=== PATIENT | female | born 1955 | race Caucasian/White ===

== ENCOUNTER 2018-09-03 14:03 | Outpatient (CLI) | payer BC, SELFPAY ==
[2018-09-03 14:25] LABS: Abs Immature Grans 0.01 k/cumm (0.0-0.09); Absolute Basophil Count 0.01 k/cumm (0.0-0.2); Absolute Eosinophil Count 0.12 k/cumm (0.0-0.7); Absolute Lymphocyte Count 2.15 k/cumm (1.2-3.4); Absolute Monocyte Count 0.33 k/cumm (0.11-0.7); Absolute Neutrophil Count 4.17 k/cumm (1.2-6.7); Basophils % 0.1; Eosinophils % 1.8; HCT 38.5 % (36.0-46.0); HGB 12.6 g/dL (12.0-15.5); Immature Grans % 0.1; Lymphocytes % 31.7; Mean Corp. HGB Concentration 32.7 g/dL (32.0-36.0); Mean Corpuscular Hemoglobin 30.4 pg (27.0-33.0); Mean Platelet Volume 10.5 fL (8.0-11.0); Monocytes % 4.9; Neutrophils % 61.4; Platelet Count 227 x1000/uL (130-400); RBC 4.14 m/cumm (4.00-5.20); RBC Distribution Width 13.3 % (11.7-14.6); White Blood Cell Count 6.79 k/cumm (4.4-10.8)
[2018-09-03 15:18] LABS: ALT 21 U/L (12-78); AST 14 U/L (15-37); Albumin 3.8 g/dL (3.4-5.0); Alkaline Phosphatase 73 U/L (46-116); Anion Gap 9.6 mmol/L (3-11); BUN 17 mg/dL (7-18); Bilirubin, Total 0.3 mg/dL (0.2-1.0); CO2 28.4 mmol/L (21.0-32.0); CREATININE 0.73 mg/dL (0.55-1.02); Calcium 9.1 mg/dL (8.5-10.1); Chloride 104 mmol/L (98-107); Glucose 93 mg/dL (70-100); Potassium 3.7 mmol/L (3.5-5.1); Sodium 142 mmol/L (136-145); Total Protein 6.8 g/dL (6.4-8.2)
== END 2018-09-03 14:23 ==
PROVIDERS: PCP Emergency Medicine; Visit Provider Nurse Practitioner Family
DX: R94.4 Abnormal results of kidney function studies (principal); D72.829 Elevated white blood cell count, unspecified
CPT/HCPCS: 36415; 80053; 85025

== ENCOUNTER 2019-06-21 13:06 | Emergency (ER) | payer BC, SELFPAY ==
[2019-06-21] VITALS (44 sets, daily range): BP systolic 109–154; BP diastolic 48–75; PULSE 64–95; RESP 9–26; TEMP 36.7; O2SAT 96–100
--- NOTE | 2019-06-21 13:11 | ED.GENADUL_ITS ---
Discharge Plan Disposition Patient Disposition: HOME Condition: Improving Discharge Details Chief Complaint: Chest Pain Clinical Impression: Palpitations, Chronic chest pain Primary Care Provider: Evaristo Russell ED Provider: Sarah Aguilar Home Meds and New Rx's Prescriptions: Continued acetaminophen [Acetaminophen Extra Strength] 500 MG tablet 1.5 tab PO bid prn RF: 0 Slow-Mag 71.5 MG tablet,delayed release (DR/EC) 71.5 mg PO DAILY PRNRF: 0 multivitamin 1 EACH tablet 1 tab PO DAILY RF: 0 estradiol [Vagifem] 10 MCG tablet 2 tab VG TWICE A WEEK Qty: 8 RF: 0 propranolol 10 MG tablet 10 mg PO PRN PRNRF: 0 oxycodone-acetaminophen [Percocet] 1 EACH tablet 1 tab-cap PO Q4H PRN Qty: 30 RF: 0 ursodiol 250 MG tablet 250 mg PO DAILY Qty: 90 RF: 1 naproxen sodium 550 mg tablet 550 mg PO bid prn Qty: 60 RF: 6 Discharge Instructions Instructions: Palpitations (ED), Chronic Pain (ED) Additional Instructions: Take your regular medications as directed including your metoprolol daily and your propranolol as needed. Go to [facility] tomorrow to have your ZIO Patch monitor placed in the cardiology clinic. Return immediately to the emergency department anytime if you have any worsening or new concerning symptoms of fast heart rate, worsening lightheadedness, chest pain or shortness of breath. Discharge Data Discharge Physician: Sarah Aguilar Medical Decision Making 1320 -- 63-year-old female with a history of WPW with ablation in 2011, migraine, who presents with increasing palpitations, dizziness, fatigue, shortness of breath and chest pain over the past year, worse over the past 5 days. 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 She started metoprolol under the direction of the ER physician in [place] after a visit 1 month ago for the symptoms. She has a touch desk monitor through her fingers which noted what she thought looked like ventricular tachycardia today. She states she has had recent multiple cardiac monitors including Zio patch which were normal. Review of patient's phone with this rhythm appeared to have a wide QRS irregular rhythm, tachycardia, almost appeared consistent with a rhythm that looked like torsades or V. tach. EKG noted a rate of 76, sinus with no acute ST-T wave ischemic changes. With patient's recent travel, differential diagnosis can include PE. She does admit to intermittent radiation to her back but denies tearing sensation so doubt dissection, but will obtain CT chest to rule out PE, dissection. Considering her history, will check screening labs to rule out electrolyte abnormality. Pending work-up, will call [facility] cardiology for further recommendations. 1530 -- Labs and imaging reviewed and unremarkable. Troponin negative. CT chest negative for PE. Patient had a few more episodes while discussing results in the room. Her rate and rhythm appeared normal on the monitor. A repeat EKG was done which noted a rate of 95, sinus with no acute ischemic changes. She states she has taken diazepam and lorazepam in the past for anxiety. We will give a dose of Ativan. 1615 --discussed with [facility] cardiology -who reviewed with electrophysiology -feel that this is more consistent with noise on top of sinus rhythm and do not see any evidence of ventricular tachycardia or ventricular fibrillation. Recommend patient continue her regular medications as directed including her metoprolol and propranolol as needed. A zio patch order was placed at the cardiology clinic for patient to have placed tomorrow. She can also see her primary care doctor for this zio patch. Patient feels much better. She is advised to return here with any worsening or concerning symptoms. Medical Records Medical records reviewed: Yes I reviewed the patient's medical records. Imaging Data Radiologic Study: Radiologist's impression: CT ANGIOGRAPHY, CHEST: CT angiography was performed with multi slice acquisition and multi planar and 3D reconstruction. CT angiography of the chest was performed with a bolus infusion of 100 cc of Omnipaque 350. Images obtained through the upper abdomen show incidental hepatic cysts as noted on previous ultrasound and otherwise unremarkable appearance of visualized portions of liver, spleen and pancreas. Thoracic aorta is unremarkable in appearance with no aneurysm or dissection. No evidence of pulmonary embolic disease. The lungs are clear. No pleural effusion. No me diastinal or hilar adenopathy. CONCLUSION: No evidence of acute pulmonary embolus. Lab Data Lab results reviewed: Yes I reviewed the patient's lab results. Laboratory Tests Range/Units 06/21/19 06/21/19 06/21/19 13:25 13:25 13:25 WBC (4.4-10.8) k/cumm 10.81 H RBC (4.00-5.20) m/cumm 4.67 Hgb (12.0-15.5) g/dL 14.3 Hct (36.0-46.0) % 42.9 MCV (80-95) fL 91.9 MCH (27.0-33.0) pg 30.6 MCHC (32.0-36.0) g/dL 33.3 RDW (11.7-14.6) % 13.1 Plt Count (130-400) x1000/uL 316 MPV (8.0-11.0) fL 11.4 H Immature Gran % 0.2 Neutrophils % 63.8 Lymphocytes % 28.8 Monocytes % 5.4 Eosinophils % 1.7 Basophils % 0.1 Absolute Neutrophils (1.2-6.7) k/cumm 6.90 H Absolute Lymphocytes (1.2-3.4) k/cumm 3.11 Absolute Monocytes (0.11-0.7) k/cumm 0.58 Absolute Eosinophils (0.0-0.7) k/cumm 0.18 Absolute Basophils (0.0-0.2) k/cumm 0.01 Sodium (136-145) mmol/L 141 Potassium (3.5-5.1) mmol/L 3.5 Chloride (98-107) mmol/L 103 Carbon Dioxide (21.0-32.0) mmol/L 24.8 Anion Gap (3-11) mmol/L 13.2 H BUN (7-18) mg/dL 16 Creatinine (0.55-1.02) mg/dL 0.95 Estimated GFR/1.73 m2 (mL/min/1.73m2) 59.80 Glucose (70-100) mg/dL 101 H Calcium (8.5-10.1) mg/dL 9.4 Magnesium (1.8-2.4) mg/dL 2.3 Total Bilirubin (0.2-1.0) mg/dL 0.6 AST (15-37) U/L 17 ALT (14-59) U/L 22 Alkaline Phosphatase (46-116) U/L 85 Troponin I (0.00-0.06) ng/mL < 0.05 NT-Pro-B Natriuret Pep ( - 299) pg/mL 96 Total Protein (6.4-8.2) g/dL 8.3 H Albumin (3.4-5.0) g/dL 4.4 ECG Data Attestation: I personally reviewed and interpreted this ECG (s) as follows: Interpretation: #1 -- Rate of 76, sinus, no acute ST elevation or depression. T wave inversion in V2. CA 150. QTc 443. QRS 82. #2 -- Rate of 95, sinus, no acute ST elevation or depression. T wave inversion in V2. CA 168. QTc 470. QRS 82. HPI General Mode of arrival: ambulatory . Date/Time Provider Initiated Documentation: 06/21/19 13:09 . Limitations to Documentation: no limitations . Information obtained by: patient . HPI Narrative: Patient is a 63-year-old female with a history of WPW with ablation in 2011 who presents with sensation of palpitations occurring every few months for the past year, getting progressively worse for the past months and especially over the past 5 days. She states the episodes are occurring more frequently and almost daily she feels shaky, tired, short of breath, lightheaded. She does admit to increased stress recently due to her mother recently being sick with a brain hemorrhage. She states she traveled to [facility] to see her 1 week ago in which she was in the car for 12 hours. She denies any leg pain or swelling. She states she was seen in the ER in [place] 1 month ago for the symptoms and was started on meto prolol 12.5 mg daily by the ER physician. She states she regularly sees her combination welder apprentice at [facility] Dr. Robert Osei and Dr. Adal Musa for her WPW and states she last saw them 1 month ago. She states she did not tell them about her recent ED visit and medication change. She states she also takes propranolol as needed for tachycardia not relieved with other measures. She states she has spoke to her combination welder apprentice at [facility] about the symptoms over the past year and they have placed several cardiac monitors including a ZIO Patch all of which have been negative. She states the most recently gave her a phone attachment which can take a 2-lead EKG through her fingers which she states that they appeared to show that she had a few episodes of ventricular tachycardia. Patient also admits to chronic chest pain since her ablation in 2011 and states that this is been occurring more frequently lately. She states it is substernal with radiation to her back. She denies any fever or cough, nausea or vomiting. Related Data Home Medications Medication Instructions Recorded Confirmed Slow-Mag 71.5 mg PO DAILY PRN 12/15/12 06/21/19 acetaminophen [Acetaminophen Extra 1.5 tab PO bid prn 12/15/12 06/21/19 Strength] multivitamin 1 tab PO DAILY 01/20/13 06/21/19 estradiol [Vagifem] 2 tab VG TWICE A WEEK #8 tab-cap 01/19/14 06/21/19 propranolol 10 mg PO PRN PRN tab-cap 04/05/14 06/21/19 oxycodone-acetaminophen [Percocet] 1 tab-cap PO Q4H PRN #30 tab-cap 03/06/17 06/21/19 ursodiol 250 mg PO DAILY #90 tab-cap 04/06/18 06/21/19 naproxen sodium 550 mg tablet 550 mg PO bid prn #60 tab 07/14/18 06/21/19 Previous Rx's Medication Instructions Recorded ursodiol 250 mg PO DAILY #90 tab-cap 04/06/18 naproxen sodium 550 mg tablet 550 mg PO bid prn #60 tab 07/14/18 Allergies Allergy/AdvReac Type Severity Reaction Status Date / Time fentanyl Allergy Severe SEVERE Unverified 02/10/18 15:52 DROP IN BLOOD PRESSURE. ciprofloxacin [From Cipro] Allergy Intermediate neurotoxic Verified 06/25/18 14:12 S/S erythromycin base Allergy Unknown Unverified 02/10/18 15:52 midazolam Allergy Unknown Unverified 02/10/18 15:52 Phenothiazines Allergy Unknown SKIN RASH Unverified 02/10/18 15:52 sumatriptan Allergy Unknown Unverified 02/10/18 15:52 prochlorperazine Allergy Unverified 02/10/18 15:52 [From Compazine] Review of Systems Review of Systems All systems reviewed & are unremarkable except as noted in HPI and below Constitutional Reports as per HPI, Denies chills, Reports fatigue and Denies fever(s) Eyes Denies blurry vision ENT Denies dizziness, Denies sore throat and Denies throat swelling Cardiovascular Reports chest pain, Reports rapid heart rate, Reports palpitations and Reports dyspnea Respiratory Denies cough and Reports dyspnea Gastrointestinal Denies abdominal pain, Denies diarrhea and Denies vomiting Genitourinary Denies hematuria and Denies dysuria Musculoskeletal Denies back pain and Denies numbness Integumentary/Breasts Denies lesions and Denies rash Neurologic Denies dizziness, Denies focal weakness and Denies numbness Endocrine Reports fatigue and Reports palpitations Allergic/Immunologic Denies throat swelling [facility] Medical History Migraine with aura (Inactive) complex migraine Uterine leiomyoma (Inactive) Wkplt-Ayoxhyhqs-Yifka syndrome (Acute) Surgical History Cholecystectomy (~2011) with secondary peritonitis History of cardiac radiofrequency ablation (Acute) 2011 Social History (Updated 06/21/19 @ 14:06 by Sarah Aguilar DO) Smoking/Tobacco Use Status: Never Alcohol Intake: never Drug use: Never Substance use type: does not use Do you feel safe at home: Yes Do you feel safe in your relationship?: Yes Exam Const General: cooperative, healthy appearing and no acute distress HENMT Head: normal to inspection Ears: hearing grossly normal bilaterally General nose exam: external nose normal Face and sinus: normal facial exam Mouth: oral mucosae normal Eyes General: appearance normal, both eyes and all related structures EOM: EOM intact bilaterally Neck Neck: normal visual inspection and No submandibular swelling Lymphatic: no lymphadenopathy noted Chest Chest: normal inspection of the chest and no tenderness Resp Effort & Inspection: normal respiratory effort and able to speak in complete sentences Auscultation: clear to auscultation bilaterally Cardio Rate: regular rate Rhythm: regular rhythm GI Inspection: normal to inspection Palpation: soft, not firm, not rigid and nontender Auscultation: normal bowel sounds Skin General skin exam: no rashes or lesions noted Neuro General: alert, awake and oriented x3 Cognition: normal cognition Speech: speech normal Motor: muscle tone normal throughout Sensory Exam: no sensory deficits noted Extrem General: normal to inspection, full ROM, normal capillary refill, no calf tenderness bilaterally and no edema Psych Appearance: grossly normal Mental Status: mental status grossly normal Speech and Movement: speech and movement normal Affect: normal affect
--- NOTE | 2019-06-21 13:36 | NUR.NOTE ---
Nursing Note: obtain VS for RN PS see triage
[2019-06-21 13:57] LABS: Abs Immature Grans 0.02 k/cumm (0.0-0.09); Absolute Basophil Count 0.01 k/cumm (0.0-0.2); Absolute Eosinophil Count 0.18 k/cumm (0.0-0.7); Absolute Lymphocyte Count 3.11 k/cumm (1.2-3.4); Absolute Monocyte Count 0.58 k/cumm (0.11-0.7); Basophils % 0.1; Eosinophils % 1.7; HCT 42.9 % (36.0-46.0); HGB 14.3 g/dL (12.0-15.5); Immature Grans % 0.2; Lymphocytes % 28.8; Mean Corp. HGB Concentration 33.3 g/dL (32.0-36.0); Mean Corpuscular Hemoglobin 30.6 pg (27.0-33.0); Mean Corpuscular Volume 91.9 fL (80-95); Mean Platelet Volume 11.4 fL (8.0-11.0); Monocytes % 5.4; Neutrophils % 63.8; Platelet Count 316 x1000/uL (130-400); RBC 4.67 m/cumm (4.00-5.20); RBC Distribution Width 13.1 % (11.7-14.6); White Blood Cell Count 10.81 k/cumm (4.4-10.8)
--- NOTE | 2019-06-21 13:57 | DI.CT_ITS ---
SYMPTOMS/DIAGNOSIS: SUBSTERNAL CHEST PAIN, ? PULMONARY EMBOLISM CT ANGIOGRAPHY, CHEST: CT angiography was performed with multi slice acquisition and multi planar and 3D reconstruction. CT angiography of the chest was performed with a bolus infusion of 100 cc of Omnipaque 350. Images obtained through the upper abdomen show incidental hepatic cysts as noted on previous ultrasound and otherwise unremarkable appearance of visualized portions of liver, spleen and pancreas. Thoracic aorta is unremarkable in appearance with no aneurysm or dissection. No evidence of pulmonary embolic disease. The lungs are clear. No pleural effusion. No mediastinal or hilar adenopathy. CONCLUSION: No evidence of acute pulmonary embolus.
[2019-06-21 14:11] LABS: Magnesium 2.3 mg/dL (1.8-2.4); NT-proBNP 96 pg/mL
[2019-06-21 14:12] LABS: ALT 22 U/L (14-59); AST 17 U/L (15-37); Albumin 4.4 g/dL (3.4-5.0); Alkaline Phosphatase 85 U/L (46-116); Anion Gap 13.2 mmol/L (3-11); BUN 16 mg/dL (7-18); Bilirubin, Total 0.6 mg/dL (0.2-1.0); CO2 24.8 mmol/L (21.0-32.0); CREATININE 0.95 mg/dL (0.55-1.02); Calcium 9.4 mg/dL (8.5-10.1); Chloride 103 mmol/L (98-107); Glucose 101 mg/dL (70-100); Potassium 3.5 mmol/L (3.5-5.1); Sodium 141 mmol/L (136-145); Total Protein 8.3 g/dL (6.4-8.2); Troponin I < 0.05 ng/mL (0.00-0.06)
--- NOTE | 2019-06-21 14:24 | NUR.NOTE ---
Nursing Note: pt ambulated to and from bathroom without difficulty. steady gait noted.
--- NOTE | 2019-06-21 14:32 | NUR.NOTE ---
Nursing Note: pt to CT with RN on air sampling and monitoring
[2019-06-21] MEDS: Normal Saline 1,000 ML 1000 ML IV (14:48)
[2019-06-21] MEDS: Omnipaque 350 MG/ML 100 ML BTL IJ (14:51)
[2019-06-21] MEDS: LORazepam 1 MG TAB PO (15:35)
== END 2019-06-21 17:20 | disposition home or self-care (01) ==
PROVIDERS: Emergency Provider Physician Assistant; PCP Emergency Medicine
DX: R07.9 Chest pain, unspecified (principal); G89.29 Other chronic pain; R00.2 Palpitations; I45.6 Pre-excitation syndrome
CPT/HCPCS: 71275; 80053; 93005; 96360; 99285; 83735; 83880; 84484; 85025; 93010; J3490

== ENCOUNTER 2019-06-28 15:17 | Outpatient (CLI) | payer BC, SELFPAY ==
[2019-06-28 16:45] LABS: ESR 12 mm/hr (0-30)
[2019-06-28 16:47] LABS: D-Dimer 251 ng/mlFEU (<500)
[2019-06-28 18:39] LABS: C-Reactive Protein 0.23 mg/dL (0.0-0.3); TSH 1.48 uIU/mL (0.36-3.74)
== END 2019-06-28 15:37 ==
PROVIDERS: PCP Emergency Medicine; Visit Provider Emergency Medicine
DX: E03.9 Hypothyroidism, unspecified (principal); R00.0 Tachycardia, unspecified
CPT/HCPCS: 36415; 85652; 84443; 85379; 86140

== ENCOUNTER 2019-07-04 11:34 | Outpatient (CLI) | payer BC, SELFPAY ==
[2019-07-06 19:15] LABS: Metanephrines, U 109 mcg/24 h; Normetanephrine, U 180 mcg/24 h; Total Metanephrines, U 289 mcg/24 h; Urine Volume 2025 mL
[2019-07-08 11:40] LABS: Metanephrine, Free 0.26 nmol/L (<0.50); Normetanephrine, Free 0.51 nmol/L (<0.90)
== END 2019-07-04 11:54 ==
PROVIDERS: PCP Emergency Medicine; Visit Provider Emergency Medicine
DX: R00.0 Tachycardia, unspecified (principal)
CPT/HCPCS: 36415; 81050; 83835

== ENCOUNTER 2019-07-19 02:14 | Outpatient (CLI) | payer BC, SELFPAY ==
[2019-07-19 11:51] LABS: Calculated LDL 130 mg/dL; Cholesterol 212 mg/dL (50-200); HDL Cholesterol 42 mg/dL (40-60); Triglyceride 202 mg/dL (30-150)
== END 2019-07-19 02:34 ==
PROVIDERS: PCP Emergency Medicine; Visit Provider Emergency Medicine
DX: E78.5 Hyperlipidemia, unspecified (principal)
CPT/HCPCS: 36415; 80061

== ENCOUNTER 2019-07-22 13:58 | Outpatient (CLI) | payer BC, SELFPAY ==
[2019-07-22 16:00] LABS: Abs Immature Grans 0.02 k/cumm (0.0-0.09); Absolute Basophil Count 0.01 k/cumm (0.0-0.2); Absolute Lymphocyte Count 0.75 k/cumm (1.2-3.4); Absolute Neutrophil Count 10.16 k/cumm (1.2-6.7); Basophils % 0.1; HCT 39.6 % (36.0-46.0); HGB 13.2 g/dL (12.0-15.5); Immature Grans % 0.2; Lymphocytes % 6.8; Mean Corp. HGB Concentration 33.3 g/dL (32.0-36.0); Mean Corpuscular Hemoglobin 31.3 pg (27.0-33.0); Mean Corpuscular Volume 93.8 fL (80-95); Mean Platelet Volume 10.8 fL (8.0-11.0); Monocytes % 0.9; Platelet Count 259 x1000/uL (130-400); RBC 4.22 m/cumm (4.00-5.20); RBC Distribution Width 13.1 % (11.7-14.6); White Blood Cell Count 11.04 k/cumm (4.4-10.8)
[2019-07-22 16:55] LABS: ESR 15 mm/hr (0-30)
[2019-07-22 17:55] LABS: ALT 14 U/L (14-59); AST 12 U/L (15-37); Albumin 3.9 g/dL (3.4-5.0); Alkaline Phosphatase 82 U/L (46-116); Amylase 76 U/L (25-115); Anion Gap 11.6 mmol/L (3-11); BUN 22 mg/dL (7-18); Bilirubin, Total 0.3 mg/dL (0.2-1.0); C-Reactive Protein 0.19 mg/dL (0.0-0.3); CO2 26.4 mmol/L (21.0-32.0); CREATININE 1.01 mg/dL (0.55-1.02); Chloride 105 mmol/L (98-107); Estimated GFR 55.54 (mL/min/1.73m2); Glucose 156 mg/dL (70-100); Lipase 629 U/L (73-393); Potassium 4.3 mmol/L (3.5-5.1); Sodium 143 mmol/L (136-145); TSH 0.35 uIU/mL (0.36-3.74); Total Protein 7.1 g/dL (6.4-8.2)
== END 2019-07-22 14:18 ==
PROVIDERS: PCP Emergency Medicine; Visit Provider Emergency Medicine
DX: E03.9 Hypothyroidism, unspecified (principal); R10.9 Unspecified abdominal pain
CPT/HCPCS: 36415; 80053; 83690; 85652; 82150; 84443; 85025; 86140

== ENCOUNTER 2019-08-01 00:46 | Outpatient (CLI) | payer BC, SELFPAY ==
--- NOTE | 2019-08-01 14:50 | DI.MRI_ITS ---
EXAM: MR ANGIO BRAIN WO CLINICAL HISTORY: right visual facial symptoms H54.61 VISUAL LOSS RT EYE. TECHNIQUE: Multiplanar multisequence MRI was performed. COMPARISON: No exams were available for comparison FINDINGS: There is no evidence of aneurysm, occlusion or significant stenosis. No vessel irregularity is see n. IMPRESSION: Negative MRA of the brain.
--- NOTE | 2019-08-01 14:50 | DI.MRI_ITS ---
EXAM: MR BRAIN WO CLINICAL HISTORY: right visual facial symptoms H54.61 VISUAL LOSS RT EYE. TECHNIQUE: Multiplanar multisequence MRI was performed. COMPARISON: MRI - BRAIN WO CONTRAST from 08/06/2016 MR ANGIO BRAIN WO from 08/01/2019 FINDINGS: No intracranial hemorrhage, mass or infarct is seen. There are a few tiny high signal lesions in th e white matter which are nonspecific and may reflect sequela of microvascular disease. No significan t atrophy or ventricular dilatation is seen. The vascular flow voids appear intact. The orbits, sin uses and mastoid air cells appear unremarkable. IMPRESSION: No acute abnormality.
--- NOTE | 2019-08-01 16:17 | DI.VRAD_ITS ---
PROCEDURE INFORMATION: Exam: MR Head Without Contrast Exam date and time: 08/01/2019 3:41 PM Clinical history: 64 years old, female; Visual disturbance; Patient HX: Visual loss RT eye TECHNIQUE: Imaging protocol: MR of the head without contrast. COMPARISON: MR ANGIO BRAIN WO 08/01/2019 3:06 PM FINDINGS: Brain: Normal. No acute infarct. No hemorrhage. No significant white matter disease. No edema. Ventricles: Normal. No ventriculomegaly. Bones/joints: Unremarkable. Soft tissues: Unremarkable. Sinuses: Normal as visualized. No acute sinusitis. Mastoid air cells: Normal as visualized. No mastoid effusion. Orbits: Unremarkable. IMPRESSION: No acute findings. Dictated and Authenticated by: Rohan Guan MD. Ordering:ISABEL Loera MD
--- NOTE | 2019-08-01 16:22 | DI.VRAD_ITS ---
PROCEDURE INFORMATION: Exam: MR Angiogram Head Without and With Contrast, Arteries Exam date and time: 08/01/2019 3:34 PM Clinical history: 64 years old, female; Visual disturbance; Transient visual loss; Patient HX: Visual loss right eye TECHNIQUE: Imaging protocol: MR angiogram head without and with intravenous contrast. Exam focused on the arteries. 3D rendering: MIP reconstructed images were created and reviewed. COMPARISON: MRI - BRAIN WO CONTRAST 08/06/2016 3:47 PM FINDINGS: Right internal carotid artery: Unremarkable. Intracranial segment is patent with no significant stenosis. No aneurysm. Right anterior cerebral artery: Unremarkable. No occlusion or significant stenosis. No aneurysm. Right middle cerebral artery: Unremarkable. No occlusion or significant stenosis. No aneurysm. Right posterior cerebral artery: Unremarkable. No occlusion or significant stenosis. No aneurysm. Right vertebral artery: Unremarkable. No occlusion or significant stenosis. No aneurysm. Left internal carotid artery: Unremarkable. Intracranial segment is patent with no significant stenosis. No aneurysm. Left anterior cerebral artery: Unremarkable. No occlusion or significant stenosis. No aneurysm. Left middle cerebral artery: Unremarkable. No occlusion or significant stenosis. No aneurysm. Left posterior cerebral artery: Unremarkable. No occlusion or significant stenosis. No aneurysm. Left vertebral artery: Unremarkable. No occlusion or significant stenosis. No aneurysm. Basilar artery: Unremarkable. No occlusion or significant stenosis. No aneurysm. IMPRESSION: No acute findings. Dictated and Authenticated by: Rohan Guan MD. Ordering:ISABEL Loera MD
== END 2019-08-01 01:06 ==
PROVIDERS: PCP Emergency Medicine; Visit Provider Emergency Medicine
DX: H54.61 Unqualified visual loss, right eye, normal vision left eye (principal)
CPT/HCPCS: 70544; 70551

== ENCOUNTER 2019-08-07 11:15 | Outpatient (REF) | payer BC, SELFPAY ==
[2019-08-08 15:28] LABS: Creatinine,Urine 65.32 mg/dL
[2019-08-08 15:36] LABS: Creatinine,24hr Ur 0.98 g/24hr (0.60-1.80); Total Volume 1500 ml
[2019-08-11 12:43] LABS: 5-Hydroxyindoleacetic Acid, U 2.3 mg/24 h (<=8.4); Urine Volume 1500 mL
== END 2019-08-07 11:35 ==
LOC: LBN 11:15
PROVIDERS: PCP Emergency Medicine; Visit Provider Internal Medicine Endocrinology, Diabetes & Metabolism
DX: E04.1 Nontoxic single thyroid nodule (principal)
CPT/HCPCS: 81050; 82570; 83497

== ENCOUNTER 2019-09-06 07:00 | Outpatient (CLI) | payer BC, SELFPAY ==
[2019-09-06 12:45] LABS: Abs Immature Grans 0.01 k/cumm (0.0-0.09); Absolute Basophil Count 0.01 k/cumm (0.0-0.2); Absolute Lymphocyte Count 1.63 k/cumm (1.2-3.4); Absolute Neutrophil Count 4.16 k/cumm (1.2-6.7); Basophils % 0.2; Eosinophils % 1.6; HCT 41.2 % (36.0-46.0); HGB 13.4 g/dL (12.0-15.5); Immature Grans % 0.2; Lymphocytes % 25.8; Mean Corp. HGB Concentration 32.5 g/dL (32.0-36.0); Mean Corpuscular Hemoglobin 30.5 pg (27.0-33.0); Mean Corpuscular Volume 93.8 fL (80-95); Mean Platelet Volume 11.5 fL (8.0-11.0); Monocytes % 6.3; Neutrophils % 65.9; Platelet Count 258 x1000/uL (130-400); RBC 4.39 m/cumm (4.00-5.20); RBC Distribution Width 13.1 % (11.7-14.6); White Blood Cell Count 6.31 k/cumm (4.4-10.8)
[2019-09-06 13:02] LABS: ALT 16 U/L (14-59); AST 13 U/L (15-37); Albumin 3.9 g/dL (3.4-5.0); Alkaline Phosphatase 75 U/L (46-116); Amylase 59 U/L (25-115); Anion Gap 8.3 mmol/L (3-11); BUN 12 mg/dL (7-18); Bilirubin, Total 0.4 mg/dL (0.2-1.0); C-Reactive Protein 0.32 mg/dL (0.0-0.3); CO2 28.7 mmol/L (21.0-32.0); CREATININE 0.82 mg/dL (0.55-1.02); Calcium 8.8 mg/dL (8.5-10.1); Chloride 105 mmol/L (98-107); Glucose 87 mg/dL (74-106); Lipase 306 U/L (73-393); NT-proBNP 77 pg/mL (<300); Sodium 142 mmol/L (136-145); Total Protein 6.8 g/dL (6.4-8.2)
[2019-09-06 13:21] LABS: GGT 22 U/L (5-55)
[2019-09-06 14:02] LABS: D-Dimer 175 ng/mlFEU (<500)
[2019-09-06 14:29] LABS: ESR 14 mm/hr (0-30)
== END 2019-09-06 07:20 ==
PROVIDERS: PCP Emergency Medicine; Visit Provider Emergency Medicine
DX: R06.02 Shortness of breath (principal); I50.9 Heart failure, unspecified; R10.9 Unspecified abdominal pain
CPT/HCPCS: 36415; 80053; 83690; 85652; 82150; 82977; 83880; 85025; 85379; 86140

== ENCOUNTER 2019-09-26 01:02 | Outpatient (CLI) | payer BC, SELFPAY ==
--- NOTE | 2019-09-26 12:51 | DI.US_ITS ---
EXAM: US PELVIS TRANSVAGINAL CLINICAL HISTORY: Rt-sided pelvic pain, weight loss, R10.2,NAUSEA, H/O CYSTS TECHNIQUE: Ultrasound performed using standard protocol. Transabdominal and transvaginal exams wer e performed. COMPARISON: RIGHT EXTREMITY ULTRASOUND from 02/07/2014 MRI - BRAIN WO CONTRAST from 08/06/2016 FINDINGS: The uterus measures 4.9 x 2.6 x 4 cm. The endometrial stripe is abnormally thickened at 9 millimeters . The endometrium also appears heterogeneous with multiple cystic areas. Ovaries are normal in size a nd appearance. No free fluid or hydronephrosis is seen. IMPRESSION: Thickened heterogeneous endometrium with multiple cystic areas. Biopsy could be considered for fur ther evaluation.
== END 2019-09-26 01:22 ==
PROVIDERS: PCP Internal Medicine; Visit Provider Nurse Practitioner Women's Health
DX: R10.2 Pelvic and perineal pain (principal); R63.4 Abnormal weight loss; R11.0 Nausea; R93.89 Abnormal findings on diagnostic imaging of other specified body structures; N85.8 Other specified noninflammatory disorders of uterus
CPT/HCPCS: 76830; 76856

== ENCOUNTER 2019-09-28 15:21 | Outpatient (REF) | payer BC, SELFPAY ==
--- NOTE | 2019-09-28 14:40 | ENDOMET_PTH ---
PATIENT: Merry Bailey LOC: N U#:[id number] AGE/SX: 64/F ROOM: RE09/28/[address]: Teja Soto MD : 1955 BED: DIS: 09/28/2019 SPEC #: [id number] RECD: 09/28/19 17:16 STATUS: OLAMIDE REQ #: [id number] SWATHI: 09/28/19 14:[address]: Teja Soto DEPT: Surgical Specimen RECD BY: Hyacinth Justin ENTERED: 09/28/19 17:17 SP TYPE: Endomet OTHR DR: Sabrina Giraldo Tissues: 1 - ENDOMETRIUM BX/CURRETTE Procedures: GROSS AND MICRO LEVEL 4 Comments: [id number]
== END 2019-09-28 15:41 ==
LOC: LBN 15:21
PROVIDERS: PCP Internal Medicine; Visit Provider Obstetrics & Gynecology
DX: N85.8 Other specified noninflammatory disorders of uterus (principal); N95.0 Postmenopausal bleeding; R93.89 Abnormal findings on diagnostic imaging of other specified body structures
CPT/HCPCS: 88305

== ENCOUNTER 2020-11-07 02:43 | Outpatient (CLI) | payer BC, SELFPAY ==
[2020-11-07 12:30] LABS: Abs Immature Grans 0.02 10^3/uL (0.0-0.06); Absolute Basophil Count 0.03 10^3/uL (0.0-0.2); Absolute Eosinophil Count 0.16 10^3/uL (0.0-0.7); Absolute Lymphocyte Count 1.81 10^3/uL (1.2-3.4); Absolute Monocyte Count 0.37 10^3/uL (0.1-0.8); Absolute Neutrophil Count 4.73 10^3/uL (1.2-6.7); Basophils % 0.4; Eosinophils % 2.2; HCT 42.1 % (36.0-46.0); HGB 13.8 g/dL (11.2-15.7); Immature Grans % 0.3; Lymphocytes % 25.4; MCH 30.9 pg (27.0-33.0); MCHC 32.8 % (32.0-36.0); MCV 94.4 fL (80-95); MPV 11.6 fL (8.0-11.0); Monocytes % 5.2; Neutrophils % 66.5; Nucleated RBC 0 %; Platelet Count 240 10^3/uL (130-400); RBC 4.46 10^6/uL (3.93-5.22); RDW-SD 44.3 fL; WBC 7.12 10^3/uL (4.4-10.8)
[2020-11-07 13:27] LABS: ALT 23 U/L (14-59); AST 16 U/L (15-37); Alkaline Phosphatase 68 U/L (46-116); Anion Gap 7.9 mmol/L (3-11); BUN 19 mg/dL (7-18); Bilirubin, Total 0.6 mg/dL (0.2-1.0); CO2 26.1 mmol/L (21.0-32.0); Calcium 9.2 mg/dL (8.5-10.1); Chloride 104 mmol/L (98-107); Glucose 93 mg/dL (74-106); Potassium 3.8 mmol/L (3.5-5.1); Sodium 138 mmol/L (136-145)
[2020-11-07 14:19] LABS: ESR 39 mm/hr (0-30)
[2020-11-08 10:06] LABS: C3 Complement 129 mg/dL (81-157); C4 Complement 29 mg/dL (13-39)
[2020-11-08 14:17] LABS: ANA Interpretation Negative (Negative)
[2020-11-09 20:05] LABS: Complement C1q, S 22 mg/dL (12 - 22)
[2020-11-19 11:53] LABS: Misc Referral (MAYO) See Comments
== END 2020-11-07 03:03 ==
PROVIDERS: PCP Emergency Medicine; Visit Provider Allergy & Immunology
DX: R21 Rash and other nonspecific skin eruption (principal)
CPT/HCPCS: 36415; 80053; 83520; 85652; 86332; 85025; 86038; 86160

== ENCOUNTER 2021-01-02 03:34 | Outpatient (CLI) | payer BC, SELFPAY ==
[2021-01-02 12:39] LABS: Hemoglobin A1C 5.7 % (<5.7)
[2021-01-02 12:50] LABS: FREE T4 1.07 ng/dL (0.76-1.46); TSH 1.47 uIU/mL (0.36-3.74)
[2021-01-02 13:14] LABS: Calculated LDL 136 mg/dL (<100); Cholesterol 218 mg/dL (<200); HDL Cholesterol 45 mg/dL (40-60); Triglyceride 187 mg/dL (<150)
== END 2021-01-02 03:35 | disposition home or self-care (01) ==
LOC: LOS 03:35
PROVIDERS: PCP Emergency Medicine; Visit Provider Internal Medicine Cardiovascular Disease
DX: E78.1 Pure hyperglyceridemia (principal)
CPT/HCPCS: 36415; 80061; 83036; 84439; 84443

== ENCOUNTER 2021-01-03 22:11 | Outpatient (REF) | payer BC, SELFPAY ==
[2021-01-03 17:25] LABS: COMMENT (LAB VIEW ONLY) 100.29 mg/dL; Microalb ug/mg Crea 7.3 ug/mg Cr
[2021-01-03 17:42] LABS: Bilirubin Negative (Negative); Blood Negative (Negative); Clarity Clear (Clear); Glucose Negative (Negative); Ketones Negative (Negative); Leukocyte Esterase Negative (Negative); Nitrite Negative (Negative); Urobilinogen 0.2 EU/dL (Up TO 0.2); pH 7.5 (5-8)
== END 2021-01-03 22:12 | disposition home or self-care (01) ==
LOC: LBN 22:11
PROVIDERS: PCP Emergency Medicine; Visit Provider Internal Medicine Cardiovascular Disease
DX: E78.1 Pure hyperglyceridemia (principal)
CPT/HCPCS: 81003; 82043; 82570

== ENCOUNTER 2021-03-29 09:15 | Outpatient (CLI) | payer BC, SELFPAY ==
--- NOTE | 2021-03-29 09:15 | RT.EKG_ITS ---
APPROVED REPORT Exam: Resting ECG Reason for Exam: Chest Pain Patient Location: O HR:65 bpm ECG Measurements Heart Rate 65 AXIS MI 171 P 65 QRSd 75 QRS 65 QT 389 T 60 QTc 405 Conclusion Sinus rhythm...normal P axis, V-rate 60- 99 Normal Electrocardiogram
== END 2021-03-29 09:16 | disposition home or self-care (01) ==
LOC: DI.CM 09:15
PROVIDERS: PCP Emergency Medicine; Visit Provider Physician Assistant
DX: R07.89 Other chest pain (principal)
CPT/HCPCS: 93010

== ENCOUNTER 2021-03-29 21:20 | Outpatient (REF) | payer BC, SELFPAY ==
[2021-03-29 14:28] LABS: FREE T4 0.98 ng/dL (0.76-1.46); Lipase 276 U/L (73-393); TSH 1.16 uIU/mL (0.36-3.74)
== END 2021-03-29 21:21 | disposition home or self-care (01) ==
LOC: LBN 21:20
PROVIDERS: PCP Emergency Medicine; Visit Provider Physician Assistant
DX: R11.0 Nausea (principal); I49.9 Cardiac arrhythmia, unspecified
CPT/HCPCS: 83690; 84439; 84443

== ENCOUNTER 2023-05-19 09:46 | Outpatient (REF) | payer MEDICARE, BC, SELFPAY ==
--- NOTE | 2023-05-19 09:00 | PAPFT_PTH ---
PATIENT: Merry Bailey LOC: [facility]#:[id number] AGE/SX: 67/F ROOM: RE05/19/[address]: Aaliyah Galloway MD, DC : 1955 BED: DIS: 05/19/2023 SPEC #: [id number] RECD: 05/19/23 13:00 STATUS: OLAMIDE WILKINS #: [id number] SWATHI: 05/19/23 09:[address]: Aaliyah Galloway DEPT: [facility] Cytology RECD BY: Hyacinth Justin Tissues: 1 - CX/ENDOCX FOR PAP SMEARS Procedures: PAP THIN PREP/UVM Screening HPV DNA PROBE Comments: [id number]
== END 2023-05-19 09:47 | disposition home or self-care (01) ==
LOC: LBN 09:46
PROVIDERS: PCP Family Medicine; Visit Provider Family Medicine
DX: Z12.4 Encounter for screening for malignant neoplasm of cervix (principal); Z11.51 Encounter for screening for human papillomavirus (HPV)
CPT/HCPCS: 88142; 87624

== ENCOUNTER 2023-08-10 17:02 | Outpatient (CLI) | payer MEDICARE, BC, SELFPAY ==
--- NOTE | 2023-08-10 17:00 | RT.EKG_ITS ---
APPROVED REPORT Exam: Resting ECG Reason for Exam: chest discomfort Patient Location: O HR:101 bpm ECG Measurements Heart Rate 101 AXIS WY 142 P 82 QRSd 103 QRS 71 QT 349 T 47 QTc 453 Conclusion Sinus tachycardia...rate> 99 Probable left atrial enlargement...P >50mS, <-0.10mV V1 Nonspecific T abnormalities, anterior leads...T <-0.10mV, V2-V4
== END 2023-08-10 17:03 | disposition home or self-care (01) ==
LOC: DI.CM 17:04
PROVIDERS: PCP Family Medicine; Visit Provider Nurse Practitioner Family
DX: R07.89 Other chest pain (principal)
CPT/HCPCS: 93010

== ENCOUNTER 2023-08-10 18:12 | Observation (INO) | payer MEDICARE, BC, SELFPAY ==
[2023-08-10] VITALS (23 sets, daily range): BP systolic 126–177; BP diastolic 54–80; PULSE 80–114; RESP 4–19; TEMP 36.2–36.5; O2SAT 96–100
--- NOTE | 2023-08-10 18:15 | RT.EKG_ITS ---
APPROVED REPORT Exam: Resting ECG Reason for Exam: Chest Pain Patient Location: E HR:106 bpm ECG Measurements Heart Rate 106 AXIS FL 186 P 63 QRSd 79 QRS 69 QT 334 T 33 QTc 443 Conclusion Sinus tachycardia...rate> [address] [place] [address] depression, lateral leads, nonspecific - new Compared to prior EKG performed on 03/29/2021 at 09:22.
--- NOTE | 2023-08-10 18:16 | W.ED.GENAD ---
Discharge Plan Disposition Patient Disposition: Admit to [facility] Condition: Fair Discharge Details Clinical Impression: Dyspnea, Tachycardia, Chest pain Primary Care Provider: Aaliyah Galloway ED Provider: Keith Alexander [place] Meds and New Rx's Prescriptions: No Action aspirin [Adult Low Dose Aspirin] 81 mg tablet,delayed release (DR/EC) 81 mg PO DAILY PRN acetaminophen [Acetaminophen Extra Strength] 500 MG tablet 1.5 tab PO bid prn propranolol 10 MG tablet 10 mg PO PRN PRN Patient Comments: 04/05/[address] Tucker at [facility]. [facility] 03/05/16 TAKES PRN. [facility] naproxen sodium 550 mg tablet 550 mg PO bid prn Qty: 60 6RF clonazepam 0.5 mg tablet 0.5 mg PO DAILY PRN (Reason: flushing) Qty: 30 1RF metoprolol succinate 25 mg tablet extended release 24 hr 12.5 mg PO DAILY Qty: 90 3RF Medical Decision Making Patient presenting to ED from [facility] for evaluation of tachycardia, dyspnea, intermittent chest pain. The tachycardia and dyspnea have been ongoing for about a week. Chest pain with radiation to the back and has been in the last 24 hours. Pain is intermittent and not constant. It lasts minutes not hours. Her EKG here is sinus tachycardia just over 100. Her intervals are normal. She does have lateral ST depression which was not really there an hour ago at [facility] and was definitely not present compared to EKG from 2020. Patient reports allergy to IV contrast. Consider PE, ACS as possibilities. IV established and laboratory studies including troponin and D-dimer sent. Chest x-ray ordered. Patient was given aspirin at [facility] prior to being sent to ED. Patient's laboratory studies are reassuring with a normal CBC, normal chemistry and kidney function, negative troponin and negative D-dimer. Chest x-ray per my read negative for acute cardiopulmonary process. All of this is reassuring but still have unanswered questions with tachycardia and dyspnea especially on exertion as well as lateral ST depression on EKG. While the D-dimer is definitely reassuring I still have concern for possible PE. Unfortunately, patient reporting allergy to IV contrast. I have discussed with patient and with hospitalist admitting for monitoring overnight, consider lower extremity ultrasound and VQ scan tomorrow as well as cardiology consult. Patient and hospitalist in agreement. Medical Records Medical records reviewed: Yes I reviewed the patient's medical records. Lab Data Lab results reviewed: Yes I reviewed the patient's lab results. ECG Data Attestation: I personally reviewed and interpreted this ECG (s) as follows: Prior ECG tracings: available for review Interpretation: see EKG HPI General Mode of arrival: ambulatory. Date/Time Provider Initiated Documentation: 08/10/23 18:16. Limitations to Documentation: no limitations. Information obtained by: patient. HPI Narrative: Patient sent in from [facility] for evaluation of tachycardia, shortness of breath, intermittent chest pain radiating to the back for the last day. She has been experiencing episodes of tachycardia for the last week. She has a history of WPW status post ablation. She does not have prior history of PE, DVT, LA. She has had intermittent abdominal cramping, nausea, diarrhea on and off for the last month. She denies any fever or cough. She feels that her shortness of breath is related to the tachycardia. Related Data Home Medications Medication Instructions Recorded Confirmed acetaminophen 500 mg tablet 1.5 tab PO bid prn 12/15/12 08/10/23 (Acetaminophen Extra Strength) propranolol 10 mg tablet 10 mg PO PRN PRN 04/05/14 08/10/23 naproxen sodium 550 mg tablet 550 mg PO bid prn #60 tabs 04/10/22 08/10/23 clonazepam 0.5 mg tablet 0.5 mg PO DAILY PRN flushing #30 01/17/23 08/10/23 tabs metoprolol succinate 25 mg 12.5 mg (1/2 x 25 mg) PO DAILY #90 05/12/23 08/10/23 tablet,extended release 24 hr tabs aspirin 81 mg tablet,delayed 81 mg PO DAILY PRN 05/19/23 08/10/23 release (Adult Low Dose Aspirin) Previous Rx's Medication Instructions Recorded naproxen sodium 550 mg tablet 550 mg PO bid prn #60 tabs 04/10/22 clonazepam 0.5 mg tablet 0.5 mg PO DAILY PRN flushing #30 01/17/23 tabs metoprolol succinate 25 mg 12.5 mg (1/2 x 25 mg) PO DAILY #90 05/12/23 tablet,extended release 24 hr tabs Allergies Allergy/AdvReac Type Severity Reaction Status Date / Time fentanyl Allergy Severe SEVERE Verified 08/10/23 18:19 DROP IN BLOOD PRESSURE. ciprofloxacin [From Cipro] Allergy Intermediate neurotoxic Verified 08/10/23 18:19 S/S erythromycin base Allergy Unknown Verified 08/10/23 18:19 midazolam Allergy Unknown Verified 08/10/23 18:19 Phenothiazines Allergy Unknown SKIN RASH Verified 08/10/23 18:19 sumatriptan Allergy Unknown Verified 08/10/23 18:19 prochlorperazine Allergy Verified 08/10/23 18:19 [From Compazine] amoxicillin AdvReac Barahona-Jorge Verified 08/10/23 18:19 Syndrome any cillians Allergy Uncoded 08/10/23 18:19 General PHU: 3 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 Orthostatic hypotension (Acute) Presbyopia of both eyes (Acute) Jkved-Qgtsqxped-Rtaqt pattern (Acute) ablation x 2 Thyroid nodule (Acute) neg biopsy 05/29 Pulsatile tinnitus (Acute) neg vasular studies Migraine (Chronic) Abdominal pain (Acute) Endometriosis (Chronic) Cardiac arrhythmia (Acute) Endometrial thickening on ultrasound (Acute) Arrhythmia (Acute) Annual physical exam (Acute) Osteopenia (Acute) SOB (shortness of breath) (Acute) Acute hearing loss of both ears (Acute) Medical History Xmtuy-Uczvxheva-Ddjar syndrome Uterine leiomyoma Migraine with aura complex migraine Surgical History History of cardiac radiofrequency ablation 2011 Cholecystectomy (~2011) with secondary peritonitis Family History Mother Heart disease Heart attack Lupus Thyroid disease Maternal Grandmother Heart attack Heart disease Social History Smoking/Tobacco Use Status: Never Second Hand Exposure: Yes Smoking risk assessment performed?: Yes Alcohol Intake: never Drug use: Never Substance use type: does not use Caregiver/Support person: No Household members: spouse Housing: house Communication Needs: Corrective Lenses Pets and animals: Yes Pets and animals: dog(s) Sexually active: No Current gender identity: female What is your relationship status?: Panel score (0-1 are the most socially isolated patients): 1 What type of physical activity do you participate in: none Seatbelt use: always Helmet use: Yes Do you feel safe at home: Yes Do you feel safe in your relationship?: Yes Female Reproductive History Menstrual Menopause type: natural History History 3 Para 0 Hx # Term Pregnancies Multiple births Hx # Pregnancies Ectopic pregnancies AB induced Hx Number of Living Children AB spontaneous Exam Narrative Exam Narrative: Const: WDWN female in NAD. HEENT: NC/AT. Normal facial exam. Eyes: Normal conjunctiva and sclera. Neck: Supple. Trachea midline. Lungs: Normal respiratory effort. Lungs are clear. Cor: RRR without murmur/gallop. Good radial pulses. GI: Soft. NT/ND. No guarding or rebound. Neuro: A+O x 3. Normal speech, mentation, gait. Cranial nerves II - XII grossly intact. No gross motor or sensory deficit. Ext: No C/C/E. Skin: Warm and dry without rash.
[2023-08-10 18:39] LABS: Abs Immature Grans 0.02 10^3/uL (0.0-0.06); Absolute Basophil Count 0.05 10^3/uL (0.0-0.2); Absolute Eosinophil Count 0.55 10^3/uL (0.0-0.7); Absolute Lymphocyte Count 2.08 10^3/uL (1.2-3.4); Absolute Neutrophil Count 4.57 10^3/uL (1.2-6.7); Basophils % 0.6; Eosinophils % 6.9; HCT 42.1 % (36.0-46.0); HGB 14.2 g/dL (11.2-15.7); Immature Grans % 0.3; Lymphocytes % 26.1; MCH 30.2 pg (27.0-33.0); MCHC 33.7 % (32.0-36.0); MCV 90 fL (80-95); MPV 9.9 fL (8.0-11.0); Monocytes % 8.8; Neutrophils % 57.3; Platelet Count 250 10^3/uL (130-400); RDW 12.3 % (11.7-14.6); RDW-SD 40.8 fL; WBC 7.97 10^3/uL (4.4-10.8)
[2023-08-10 19:01] LABS: ALT 22 U/L (14-59); AST 13 U/L (15-37); Albumin 3.9 g/dL (3.4-5.0); Alkaline Phosphatase 79 U/L (46-116); Anion Gap 11.3 mmol/L (3-11); BUN 18 mg/dL (7-18); Bilirubin, Total 0.3 mg/dL (0.2-1.0); CO2 26.7 mmol/L (21.0-32.0); CREATININE 0.9 mg/dL (0.55-1.02); Calcium 9.8 mg/dL (8.5-10.1); Chloride 101 mmol/L (98-107); Estimated GFR 70.51 (mL/min/1.73m2); Glucose 119 mg/dL (74-106); Magnesium 2.3 mg/dL (1.8-2.4); Potassium 3.6 mmol/L (3.5-5.1); Sodium 139 mmol/L (136-145); Total Protein 7.8 g/dL (6.4-8.2); Troponin I < 50 ng/L (<or=60)
[2023-08-10 19:15] LABS: D-Dimer 299 ng/mlFEU (<500)
--- NOTE | 2023-08-10 19:22 | DI.RAD_ITS ---
Exam(s) XR CHEST 2V PA LATERAL EXAM: XR CHEST 2V PA LATERAL CLINICAL HISTORY: CP and SOB TECHNIQUE: 2D digital imaging was performed of the chest. Two images were obtained. PA and lateral views were obtained. COMPARISON: No exams were available for comparison FINDINGS: MEDIASTINUM: Normal. HEART: Normal. PULMONARY VASCULATURE: Normal. LUNGS: Clear. PLEURAL SPACE: No pleural effusion or pneumothorax. BONE:Within normal limits for the patient's age. OTHER FINDINGS:Normal. IMPRESSION: No acute pulmonary findings. DATA REPOSITORY: RADIATION DOSE DELIVERED:
--- NOTE | 2023-08-10 19:31 | DI.VRAD_ITS ---
PROCEDURE INFORMATION: Exam: XR Chest Exam date and time: 08/10/2023 7:18 PM Age: 68 years old Clinical indication: Other: Cp and SOB TECHNIQUE: Imaging protocol: Radiologic exam of the chest. Views: 2 views. Total images: 2 COMPARISON: CT CHEST PE CTA 06/21/2019 2:28 PM FINDINGS: Lungs: Lungs appear clear. No visible consolidation. No pulmonary masses. Pulmonary vascularity is normal. Pleural spaces: No pleural effusion or pneumothorax. Heart/Mediastinum: Heart size is normal. Bones/joints: No acute osseous abnormalities. IMPRESSION: No acute cardiopulmonary disease. Dictated and Authenticated by: Pat Jang MD. Ordering:TIFFANIE Parker MD
[2023-08-10 19:43] LABS: Lab Add On Test DONE
[2023-08-10 20:04] LABS: TSH (W/Ref FT4) 1.74 uIU/mL (0.36-3.74)
--- NOTE | 2023-08-10 20:08 | HPE_ITS ---
Date of service: 08/10/23 Time of Service: 20:08 Assessment and Plan Assessment and plan (1) Chest pain: Status: Acute Assessment and plan: Mixed symptomatology, including palpitations, CP and SOB, not clear if all related. In order: 1. Palpitaions: first order of business is to determine if this is primary arrythmia or in fact sinus tachycarda. Will monitor. 2. CP: quality more or less pleuritic, and with CP, palps and SOB concern for PE. Normal d-Dimer reassuring but might confirm with U/S LEs (given dye allergy). I do not feel there is sufficient probability at this point to proceed with empiric anticoagulation. Other considerations, especially with (minor) EKG changes would include ACS or pericarditis, though no objective evidence of either at this point. Will trend troponins and would consider ECHO. Will also repeat EKG in AM. Full Code History of Present Illness History of Present Illness Chief Complaint: CP, palpitations, SOB Narrative: 68 female with h/o WPW, s/p ablation, h/o frequent ectopy for which she takes Lopressor and prn Inderal -- here with several days of episodic tachycardia (110-150), occurring either at rest or with exertion, spell lasting a few minutes at most (according to a home device these are sinus tachycardia). Today she also developed some brief intermittent CP (sharp, possibly worse with deep breathing), but not associated with the tachycardia spells. She was initially seen at Urgent Care and then sent here for evaluation. Here in ER she has not had any spells of either palpitation or CP. Work up of note for EKG showing sinus rhythm, 1/[address] depressions V3-6. Troponin negative, d-dimer 299, CXR negative. Patient has allergy to contrast and CTA was not done. 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 Orthostatic hypotension (Acute) Presbyopia of both eyes (Acute) Azclj-Uzzjrwxpt-Fjtfz pattern (Acute) ablation x 2 Thyroid nodule (Acute) neg biopsy 05/29 Pulsatile tinnitus (Acute) neg vasular studies Migraine (Chronic) Abdominal pain (Acute) Endometriosis (Chronic) Cardiac arrhythmia (Acute) Endometrial thickening on ultrasound (Acute) Arrhythmia (Acute) Annual physical exam (Acute) Osteopenia (Acute) SOB (shortness of breath) (Acute) Acute hearing loss of both ears (Acute) Medical History Jqggr-Qpzrhyuuz-Ptkwf syndrome Uterine leiomyoma Migraine with aura complex migraine Surgical History History of cardiac radiofrequency ablation 2011 Cholecystectomy (~2011) with secondary peritonitis Family History Mother Heart disease Heart attack Lupus Thyroid disease Maternal Grandmother Heart attack Heart disease Social History Smoking/Tobacco Use Status: Never Second Hand Exposure: Yes Smoking risk assessment performed?: Yes Alcohol Intake: never Drug use: Never Substance use type: does not use Caregiver/Support person: No Household members: spouse Housing: house Communication Needs: Corrective Lenses Pets and animals: Yes Pets and animals: dog(s) Sexually active: No Current gender identity: female What is your relationship status?: Panel score (0-1 are the most socially isolated patients): 1 What type of physical activity do you participate in: none Seatbelt use: always Helmet use: Yes Do you feel safe at home: Yes Do you feel safe in your relationship?: Yes Female Reproductive History Menstrual Menopause type: natural History History 2 3 Para 0 Hx # Term Pregnancies Multiple births Hx # Pregnancies Ectopic pregnancies AB induced Hx Number of Living Children AB spontaneous Meds Allergies and Home Medications Allergies Allergy/AdvReac Type Severity Reaction Status Date / Time fentanyl Allergy Severe SEVERE Verified 08/10/23 18:19 DROP IN BLOOD PRESSURE. ciprofloxacin [From Cipro] Allergy Intermediate neurotoxic Verified 08/10/23 18:19 S/S erythromycin base Allergy Unknown Verified 08/10/23 18:19 midazolam Allergy Unknown Verified 08/10/23 18:19 Phenothiazines Allergy Unknown SKIN RASH Verified 08/10/23 18:19 sumatriptan Allergy Unknown Verified 08/10/23 18:19 prochlorperazine Allergy Verified 08/10/23 18:19 [From Compazine] amoxicillin AdvReac Barahona-Jorge Verified 08/10/23 18:19 Syndrome any cillians Allergy Uncoded 08/10/23 18:19 Home Medications Medication Instructions Recorded Confirmed Type acetaminophen 500 mg tablet 1.5 tab PO bid prn 12/15/12 08/10/23 History (Acetaminophen Extra Strength) propranolol 10 mg tablet 10 mg PO PRN PRN 04/05/14 08/10/23 History naproxen sodium 550 mg tablet 550 mg PO bid prn #60 tabs 04/10/22 08/10/23 Rx clonazepam 0.5 mg tablet 0.5 mg PO DAILY PRN flushing #30 01/17/23 08/10/23 Rx tabs metoprolol succinate 25 mg 12.5 mg (1/2 x 25 mg) PO DAILY #90 05/12/23 08/10/23 Rx tablet,extended release 24 hr tabs aspirin 81 mg tablet,delayed 81 mg PO DAILY PRN 05/19/23 08/10/23 History release (Adult Low Dose Aspirin) Exam Narrative Exam Narrative: 173/61, 112 (last recorded, 84 during visit),36.3, 18, 99% RA. HEENT atraumatic; neck supple w/o JVD; lungs clear; heart RRR w/o MRG, but difficult exam secondary to ambient noise; abdomen soft and NT; extremities w/o edema, calves NT, Jean Carlos's negative bilateral; neuro Ox3, lucid, moves all 4s Results Labs 08/10/23 18:33 08/10/23 18:33 Labs: Laboratory Results - last 24 hr 08/10/23 18:33 WBC 7.97 RBC 4.70 Hgb 14.2 Hct 42.1 MCV 90 MCH 30.2 MCHC 33.7 RDW 12.3 Plt Count 250 MPV 9.9 Immature Gran % 0.3 Neutrophils % 57.3 Lymphocytes % 26.1 Monocytes % 8.8 Eosinophils % 6.9 Basophils % 0.6 Nucleated RBC % 0.0 Absolute Neutrophils 4.57 Absolute Lymphocytes 2.08 Absolute Monocytes 0.70 Absolute Eosinophils 0.55 Absolute Basophils 0.05 D-Dimer 299 Sodium 139 Potassium 3.6 Chloride 101 Carbon Dioxide 26.7 Anion Gap 11.3 H BUN 18 Creatinine 0.9 Est GFR (CKD-EPI 2020) 70.51 Glucose 119 H Calcium 9.8 Magnesium 2.3 Total Bilirubin 0.3 AST 13 L ALT 22 Alkaline Phosphatase 79 Troponin I < 50 Total Protein 7.8 Albumin 3.9 TSH 1.74 Add-On Test Request DONE Last Vital Signs Temp 36.3 C L 08/10/23 18:16 Pulse 112 H 08/10/23 18:16 Resp 18 08/10/23 18:41 BP 173/61 H 08/10/23 18:16 Pulse Ox 99 08/10/23 18:16 Time Spent Time spent with Patient: 40-54 minutes Time was spent: preparing to see the patient(eg.review tests), obtaining and/or reviewing separately otained hiistory, ordering medications,tests, procedures and referring, communicating with other health vp care management
[2023-08-10 21:55] LABS: Troponin I < 50 ng/L (<or=60)
[2023-08-10] MEDS: clonazePAM 0.5 MG TAB PO (23:17)
[2023-08-10] MEDS: Metoprolol CR 25 MG TABCR 12.5 MG PO (23:17)
--- NOTE | 2023-08-11 | DI.US_ITS ---
Exam(s) US EXTREMITY VENOUS BI EXAM: US EXTREMITY VENOUS BI CLINICAL HISTORY: CP. TECHNIQUE: Bilateral lower extremity venous ultrasound performed using grayscale, color-flow, and sp ectral Doppler analysis. COMPARISON: No exams were available for comparison FINDINGS: The right common femoral, femoral and popliteal veins demonstrate normal compressibility, augmentatio n, and color Doppler. The posterior tibial and peroneal veins are patent. The saphenofemoral junctio n is unremarkable. There is no evidence of a Calixto's cyst. The soft tissues are unremarkable. The left common femoral, femoral and popliteal veins demonstrate normal compressibility, augmentation , and color Doppler. The posterior tibial and peroneal veins are patent. The saphenofemoral junction is unremarkable. There is no evidence of a Calixto's cyst. The soft tissues are unremarkable. IMPRESSION: 1. No evidence of a right lower extremity DVT. 2. No evidence of a left lower extremity DVT. DATA REPOSITORY:
[2023-08-11 03:30] VITALS: BP 121/73; PULSE 79; RESP 18; TEMP 36.5; O2SAT 95
[2023-08-11 05:06] VITALS: BP 109/64; PULSE 74
--- NOTE | 2023-08-11 07:00 | RT.EKG_ITS ---
APPROVED REPORT Exam: Resting ECG Reason for Exam: Patient Location: I HR:68 bpm ECG Measurements Heart Rate 68 AXIS DC 176 P 48 QRSd 84 QRS 52 QT 408 T 36 QTc 434 Conclusion Sinus rhythm...normal P axis, V-rate 50- 99 Normal Electrocardiogram
[2023-08-11 07:04] VITALS: BP 123/66; PULSE 93; RESP 16; TEMP 36.4; O2SAT 97
[2023-08-11 07:08] LABS: Troponin I < 50 ng/L (<or=60)
--- NOTE | 2023-08-11 07:10 | INITIAL_ITS ---
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 , Rohan is supportive. Independent at baseline. ADVANCE DIRECTIVES:: On file; Rohan as agent, sister Kath as alternate. Has patient been provided with info about the portal/API?: Yes Did the patient sign up for the portal?: Yes CODE STATUS:: Full Code INSURANCE COVERAGE / FINANCIAL ISSUES:: MCR, BC/BS Fed PRIMARY CARE PHYSICIAN:: Aaliyah Galloway POTENTIAL DISCHARGE NEEDS:: Follow up appointments. PATIENT/FAMILY EDUCATION NEEDS:: Review discharge instructions, discuss Ask Me Three. ANTICIPATED BARRIERS TO DISCHARGE:: None identified at this time. TRANSPORTATION:: Via private vehicle with her . PLAN:: Hayley will return home when ready per MD. She will follow up with her PCP and plan of care as prescribed. No additional services anticipated at this time. CM continues to follow. 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 Orthostatic hypotension (Acute) Presbyopia of both eyes (Acute) Ukntz-Hsodnzehl-Hvlve pattern (Acute) ablation x 2 Thyroid nodule (Acute) neg biopsy 05/29 Pulsatile tinnitus (Acute) neg vasular studies Migraine (Chronic) Abdominal pain (Acute) Endometriosis (Chronic) Cardiac arrhythmia (Acute) Endometrial thickening on ultrasound (Acute) Arrhythmia (Acute) Annual physical exam (Acute) Osteopenia (Acute) SOB (shortness of breath) (Acute) Acute hearing loss of both ears (Acute) Medical History Pqzhk-Vjagjqqmv-Bfpca syndrome Uterine leiomyoma Migraine with aura complex migraine Surgical History History of cardiac radiofrequency ablation 2012 Cholecystectomy (~2011) with secondary peritonitis Family History Mother Heart disease Heart attack Lupus Thyroid disease Maternal Grandmother Heart attack Heart disease Social History Smoking/Tobacco Use Status: Never Second Hand Exposure: Yes Smoking risk assessment performed?: Yes Alcohol Intake: never Drug use: Never Substance use type: does not use Caregiver/Support person: No Household members: spouse Housing: house Communication Needs: Corrective Lenses Pets and animals: Yes Pets and animals: dog(s) Sexually active: No Current gender identity: female What is your relationship status?: Panel score (0-1 are the most socially isolated patients): 1 What type of physical activity do you participate in: none Seatbelt use: always Helmet use: Yes Do you feel safe at home: Yes Do you feel safe in your relationship?: Yes Female Reproductive History Menstrual Menopause type: natural History History 3 Para 0 Hx # Term Pregnancies Multiple births Hx # Pregnancies Ectopic pregnancies AB induced Hx Number of Living Children AB spontaneous
[2023-08-11] MEDS: Acetaminophen 325 MG TAB 650 MG PO (10:13)
[2023-08-11] MEDS: Normal Saline Flush 10 ML SYR IVP (10:14)
[2023-08-11 11:36] VITALS: BP 102/61; PULSE 82; RESP 16; TEMP 37.1; O2SAT 96
--- NOTE | 2023-08-11 14:35 | DSE_ITS ---
Date of service: 08/11/23 Time of Service: 14:36 DS: Diagnosis Discharge Diagnosis (1) Chest pain: Status: Acute Asessment and Plan: Serial troponins were negative. No recurrence and not related to episodes of sinus tachycardia. Outpt echocardiogram scheduled for tomorrow, 08/12/23 at 1500. (2) Tachycardia: Status: Acute Asessment and Plan: Intermittent; at rest or when active. Not associated with CP She will be seeing a telecommunications repairer when she goes to [place] for the winter which was planned for today, but now will be likely leaving for there very soon. No tachycardia noted on telemetry monitoring. (3) Baove-Jplhscrpb-Yrzsa pattern: Status: Acute Asessment and Plan: Previous ablation. 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 Today she also developed some brief intermittent CP (sharp, possibly worse with deep breathing), but not associated with the tachycardia spells. She was initially seen at Urgent Care and then sent here for evaluation. Here in ER she has not had any spells of either palpitation or CP. Work up of note for EKG showing sinus rhythm, 1/[address] depressions V3-6. Troponin negative, d-dimer 299, CXR negative. Patient has allergy to contrast and CTA was not done. See Diagnosis Home Meds and New Rx's Prescriptions: Continued aspirin [Adult Low Dose Aspirin] 81 mg tablet,delayed release (DR/EC) 81 mg PO DAILY PRN acetaminophen [Acetaminophen Extra Strength] 500 MG tablet 1.5 tab PO bid prn propranolol 10 MG tablet 10 mg PO PRN PRN Patient Comments: 04/05/[address] Tucker at [facility]. [facility] 03/05/16 TAKES PRN. [facility] naproxen sodium 550 mg tablet 550 mg PO bid prn Qty: 60 6RF clonazepam 0.5 mg tablet 0.5 mg PO DAILY PRN (Reason: flushing) Qty: 30 1RF metoprolol succinate 25 mg tablet extended release 24 hr 12.5 mg PO DAILY Qty: 90 3RF Discharge Instructions Activity:: Activity as Tolerated Equipment/Supplies:: No Equipment Needed Diet:: As Tolerated Discharge Orders Discharge Orders: Discharge Order (Routine); Ordered 08/11/23 Ordered By: Luis Yuan DS: Summary Time Spent with Patient providing and/or coordinating discharge services: Greater than 30 minutes Status at Discharge Functional status at discharge: independent ambulation Overall status at discharge: patient is back to baseline Mental Status: mental status grossly normal Speech and Movement: speech and movement normal Mood: congruent mood Affect: normal affect Exam Narrative Exam Narrative: Gen: Lying supine. Pleasant and conversant. Lungs clear. Nonlabored breathing. CV: RRR w/o MRG Exts: No edema. Psych Mental Status: mental status grossly normal Speech and Movement: speech and movement normal Mood: congruent mood Affect: normal affect DS: Data Vitals/I&O Vitals and I&O: Vital Signs Temperature 37.1 C 08/11/23 11:36 Temperature Source Tympanic 08/11/23 11:36 Pulse 82 08/11/23 11:36 Pulse Rhythm Regular 08/11/23 08:55 Pulse 99 H 08/10/23 20:50 Respiratory Rate 16 08/11/23 11:36 Respiratory Effort Normal, Non-Labored 08/11/23 08:55 Respiratory Depth Normal 08/11/23 08:55 Respiratory Pattern Normal 08/11/23 08:55 Blood Pressure 102/61 08/11/23 11:36 Blood Pressure Mean 102 08/10/23 20:37 Blood Pressure Position Sitting 08/10/23 18:16 Pulse Oximetry 96 08/11/23 11:36 Oxygen Delivery Method Room Air 08/11/23 11:36 Oxygen Flow Rate 0 08/11/23 11:36 Pain Level 5 08/11/23 11:36 Comment 5/10 headache. She also stated that she feels sick to her stomach and wants some crackers. 08/11/23 11:36 Intake & Output 1008/11/23 08/11/23 23:59 11:59 23:59 Intake Total 120 / 120 Output Total 500 / 500 Balance -380 / -380 Weight 52.163 kg Intake: Oral 120 / 120 Output: Urine 500 / 500 Other: Urine Color Yellow Urine Appearance Clear Clear Urine Odor None Voiding Methods Toilet Data Completed and Pending Labs on day of discharge: Labs from last 24 hours 08/11/23 08/10/23 08/10/23 06:05 21:30 18:33 WBC 7.97 RBC 4.70 Hgb 14.2 Hct 42.1 MCV 90 MCH 30.2 MCHC 33.7 RDW 12.3 Plt Count 250 MPV 9.9 Immature Gran % 0.3 Neutrophils % 57.3 Lymphocytes % 26.1 Monocytes % 8.8 Eosinophils % 6.9 Basophils % 0.6 Nucleated RBC % 0.0 Absolute Neutrophils 4.57 Absolute Lymphocytes 2.08 Absolute Monocytes 0.70 Absolute Eosinophils 0.55 Absolute Basophils 0.05 D-Dimer 299 Sodium 139 Potassium 3.6 Chloride 101 Carbon Dioxide 26.7 Anion Gap 11.3 H BUN 18 Creatinine 0.9 Est GFR (CKD-EPI 2020) 70.51 Glucose 119 H Calcium 9.8 Magnesium 2.3 Total Bilirubin 0.3 AST 13 L ALT 22 Alkaline Phosphatase 79 Troponin I < 50 < 50 < 50 Total Protein 7.8 Albumin 3.9 TSH 1.74 Add-On Test Request DONE 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 Orthostatic hypotension (Acute) Presbyopia of both eyes (Acute) Sogtf-Haqpkywol-Xiern pattern (Acute) ablation x 2 Thyroid nodule (Acute) neg biopsy 05/29 Pulsatile tinnitus (Acute) neg vasular studies Migraine (Chronic) Abdominal pain (Acute) Endometriosis (Chronic) Cardiac arrhythmia (Acute) Endometrial thickening on ultrasound (Acute) Arrhythmia (Acute) Annual physical exam (Acute) Osteopenia (Acute) SOB (shortness of breath) (Acute) Acute hearing loss of both ears (Acute) Medical History Hrfbl-Fyebakwic-Hsxzw syndrome Uterine leiomyoma Migraine with aura complex migraine Surgical History History of cardiac radiofrequency ablation 2012 Cholecystectomy (~2011) with secondary peritonitis Family History Mother Heart disease Heart attack Lupus Thyroid disease Maternal Grandmother Heart attack Heart disease Social History Smoking/Tobacco Use Status: Never Second Hand Exposure: Yes Smoking risk assessment performed?: Yes Alcohol Intake: never Drug use: Never Substance use type: does not use Caregiver/Support person: No Household members: spouse Housing: house Communication Needs: Corrective Lenses Pets and animals: Yes Pets and animals: dog(s) Sexually active: No Current gender identity: female What is your relationship status?: Panel score (0-1 are the most socially isolated patients): 1 What type of physical activity do you participate in: none Seatbelt use: always Helmet use: Yes Do you feel safe at home: Yes Do you feel safe in your relationship?: Yes Female Reproductive History Menstrual Menopause type: natural History History 3 Para 0 Hx # Term Pregnancies Multiple births Hx # Pregnancies Ectopic pregnancies AB induced Hx Number of Living Children AB spontaneous Time Spent with Patient Time Spent with Patient: 45-69 minutes Time was spent: preparing to see the patient(eg.review tests), obtaining and/or reviewing separately otained hiistory, ordering medications,tests, procedures, referring, communicating with other health certified caregiver, indepentently interpreting results and counseling the patient
--- NOTE | 2023-08-11 16:33 | NUR.NOTE ---
Nursing Note: pt discharged today, 24 hour urine in progress, this selling underwriter wasn't aware the patient was supposed to bring it home, informed and said it would be okay, and that if her senior net web developer wanted to do one she could do it then.
== END 2023-08-11 16:00 | disposition home or self-care (01) ==
LOC: ER 20:50 → MS 08-11 07:15
PROVIDERS: Admitting Provider General Practice; Emergency Provider Emergency Medicine; PCP Family Medicine; Visit Provider General Practice
DX: R07.89 Other chest pain (principal); I45.6 Pre-excitation syndrome; R00.0 Tachycardia, unspecified; R06.02 Shortness of breath; Z79.899 Other long term (current) drug therapy; I95.1 Orthostatic hypotension; H90.3 Sensorineural hearing loss, bilateral; N80.9 Endometriosis, unspecified; G43.109 Migraine with aura, not intractable, without status migrainosus
CPT/HCPCS: 00123; 36415; 80053; 93005; 99285; 71046; 83735; 84443; 84484; 85025; 85379; 93010; 93970; 99222; 99238; G0378

== ENCOUNTER → 2023-08-12 12:59 | Outpatient (CLI) | payer MEDICARE, BC, SELFPAY ==
--- NOTE | 2023-08-12 14:57 | DI.US_ITS ---
APPROVED REPORT EXAM: Comprehensive 2D, Doppler, and color-flow Echocardiogram Patient Location: Out-Patient Lead Driver: Qian Timmons RDCS (AE) Indications: Rheumatic mitral stenosis Other Information Study Quality: Adequate Conclusion The left ventricular wall thickness and chamber size. Ejection fraction is 56%. Wall motion is norm al Normal right ventricular size and systolic function Both atria are normal in size Aortic valve is trileaflet with trace to mild regurgitation Normal mitral valve with trace to mild regurgitation. There is no mitral stenosis Normal tricuspid valve with trace regurgitation. Estimated right ventricular systolic pressure is 18 mmHg Wall motion Left Ventricle The left ventricle is normal size. The left ventricular systolic function is normal. The left ventric ular ejection fraction is within the normal range. There is normal left ventricular wall thickness. T here is normal LV segmental wall motion. There is no ventricular septal defect visualized. LVEF is 56 %. Right Ventricle The right ventricle is normal size. The right ventricular systolic function is normal. Atria The left atrium size is normal. The right atrium size is normal. The interatrial septum is intact wit h no evidence for an atrial septal defect. Aortic Valve The aortic valve is normal in structure. Aortic valve is trileaflet. There is no aortic valvular sten osis. Trace to mild aortic regurgitation. Mitral Valve The mitral valve is normal in structure. No evidence of mitral valve stenosis. Trace to mild mitral regurgitation. Tricuspid Valve The tricuspid valve is normal in structure. There is no tricuspid valve stenosis. Trace tricuspid reg urgitation. The RVSP is 18.5mmHg. Pulmonic Valve The pulmonary valve is normal in structure. There is no pulmonic valvular stenosis. Trace pulmonic re gurgitation. Great Vessels The aortic root is normal in size. The ascending aorta is normal in size. Aortic arch is not well vis ualized. IVC is normal in size and collapses >50% with inspiration. Pericardium There is no pericardial effusion. 2D Dimensions IVSD d PLAX 0.47 cm F: 0.6-1.0 Ao Root d 2.99 cm F: 2.7 - 3.3 LVPW d PLAX 0.57 cm F: 0.6 - 1.0 Ao Asc Diam d 2.63 cm F: 2.3 - 3.1 LVID d PLAX 4.51 cm F: 3.8 - 5.2 LVDs 3.21 cm F: 2.2 - 3.5 LV EF Teichholz 55.6 % FS 28.85 % LV EDV (Teich) 92.8 mL LV ESV (Teich) 41.2 mL M-Mode TAPSE 2.26 cm (M/F) >1.7 Auto EF LV EDV A4C 64.6 mL LV EDV A2C 60.0 mL LV EDV BP 61.8 mL LV ESV A4C 31.0 mL LV ESV A2C 27.7 mL LV ESV BP 29.2 mL LVEF(%) A4C 52.0 % LVEF(%) A2C 53.9 % LVEF(%) BP 52.8 % LV SV A4C 33.6 ml LV SV A2C 32.3 ml LV SV BP 32.6 ml LV CO A4C 2.6 L/min LV CO A2C 2.4 L/min LV CO BP 2.5 L/min HR A4C 76.28 BPM HR A2C 74.85 BPM LV EDV Index (BP) LV Strain Long Pk Overal Avg (s) 16.96 RV Strain Global Peak Long. Strain A4C 17.91 Global Peak Long. Strain A4C FW 20.06 LA Volume LA Length A4C 3.7 cm LA Length A2C 4.2 cm LA Area A4C s 7.66 cm2 LA Area A2C s 9.92 cm2 LA Vol A4C A-L 13.63 mL LA Vol A2C A-L 19.91 mL LA Vol Biplane A-L 17.7 mL LA Vol/BSA A4C A-L LA Vol/BSA A2C A-L LA Vol/BSA BP A-L 11.0 mL/m2 LA Vol A4C MOD 11.6 mL LA Vol A2C MOD 18.4 mL LA Vol BP MOD 15.7 mL RA Volume RA Area A4C 7.3 cm2 RA ESV A4C (A-L) 11.5mL RA Vol/BSA A4C A-L RA Length A4C 3.9 cm RA ESV A4C (MOD) 11.4mL LV Diastology MV E' medial 0.068 (>0.07 m/s) MV E Vmax 0.71 (0.4-1.3 m/s) MV E/E' MED 10.36 (<14) MV A Vmax 0.90 (0.4-1.3 m/s) MV E' lateral 0.092 (>0.1 m/s) E/A Ratio 0.8 MV E/E' LAT 7.65 (<14) MV E' Average 0.080 m/s MV E/E'(average) 8.80 Aortic Valve AoV Vmax 1.34 m/s LVOT Vmax 1.20 m/s AoV Peak Grad 17.2 mmHg LVOT Peak Grad 5.8 mmHg AoV Area (Vmax) 2.56 cm2 LVOT VTI 0.294 m AoV VTI 0.341 m LVOT Mean Grad 3.5 mmHg AoV Mean Alex. 1.01 m/s LVOT SV 83.93 mL AoV Mean Grad 4.5 mmHg LVOT Diam s 1.90 cm AoV Area (VTI) 2.46 cm2 AV Regurg Peak Gr. 27.15 mmHg Velocity Ratio 0.90 AR Decel Sevier 1.3m/sec2 AR DT 1937 msec AR PHT 562 msec AR Vmax 2.61 m/s Mitral Valve MV DT 255 (160-240 msec) MV Vmax TIPS 0.89 m/s MV Mean Grad 1.4 (<2mmHg) MV VTI 0.213 m Pulmonary Valve PV Vmax 1.09 (0.5-1.5 m/s) RVOT Vmax 0.75 m/s PV Peak Grad 4.7 mmHg RVOT Peak Gr. 2.3 mmHg PV Mean Alex 0.72 m/s RVOT VTI 0.182 m PV Mean Grad 2.4 mmHg RVOT Mean Gr. 1.1 mmHg Tricuspid Valve RA Pressure 3.00 mmHg TR Vmax 1.97 m/s TV S' 0.12 m/s TR Peak Grad 15.5 mmHg RVSP (TR) 18.5 mmHg
== END ==
PROVIDERS: PCP Family Medicine; Visit Provider Family Medicine
DX: I05.0 Rheumatic mitral stenosis (principal)
CPT/HCPCS: 93306

== ENCOUNTER 2024-08-26 02:03 | Outpatient (CLI) | payer MEDICARE, BC, SELFPAY ==
[2024-08-26 12:44] LABS: ALT 18 U/L (14-59); AST 13 U/L (15-37); Albumin 3.8 g/dL (3.4-5.0); Alkaline Phosphatase 75 U/L (46-116); Anion Gap 8.6 mmol/L (3-11); BUN 19 mg/dL (7-18); Bilirubin, Total 0.56 mg/dL (0.2-1.0); CO2 27.4 mmol/L (21.0-32.0); CREATININE 0.9 mg/dL (0.55-1.02); Calcium 9.4 mg/dL (8.5-10.1); Chloride 109 mmol/L (98-107); Estimated GFR 70.07 (mL/min/1.73m2); Glucose 95 mg/dL (74-106); Potassium 4.7 mmol/L (3.5-5.1); Sodium 145 mmol/L (136-145); Total Protein 7.1 g/dL (6.4-8.2)
[2024-08-26 22:08] LABS: Hepatitis C Ab w Rflx HCV PCR Negative (Negative)
== END 2024-08-26 02:04 | disposition home or self-care (01) ==
LOC: LOS 02:03
PROVIDERS: PCP Family Medicine; Visit Provider Family Medicine
DX: Z11.59 Encounter for screening for other viral diseases (principal); I10 Essential (primary) hypertension
CPT/HCPCS: 36415; 80053; 86803

== ENCOUNTER 2024-08-29 12:07 | Outpatient (CLI) | payer MEDICARE, BC, SELFPAY ==
--- NOTE | 2024-08-29 13:43 | DI.RAD_ITS ---
Exam(s) XR CERVICAL SPINE COMP 4-5V EXAM: XR CERVICAL SPINE COMP 4-5V CLINICAL HISTORY: neck pain with radiation to BUE, cervical radiculopathy, M54.12. TECHNIQUE: 2D digital imaging was performed. COMPARISON: No exams were available for comparison FINDINGS: Six views No evidence of fracture, listhesis, nor offset of the spinal laminar line. However, there is reversa l of the cervical curvature in the mid-lower cervical spine. There is moderate disc space narrowing at C5-6 and C6-7 levels and there are small bilateral Luschka joint osteophytes at these 2 levels. O ther disc spaces exhibit normal height. There is mild facet joint degenerative change. No cervical ribs evident. No osseous lesions. IMPRESSION: Multilevel degenerative disc disease with some reversal of the normal curvature. Bilateral Luschka joint osteophytes noted at C5-6 and C6-7 levels. DATA REPOSITORY: RADIATION DOSE DELIVERED:
== END 2024-08-29 12:27 ==
LOC: DI 12:08
PROVIDERS: PCP Family Medicine; Visit Provider Nurse Practitioner Family
DX: M54.12 Radiculopathy, cervical region (principal)
CPT/HCPCS: 72050

== ENCOUNTER 2024-08-31 12:58 | Outpatient (CLI) | payer MEDICARE, BC, SELFPAY ==
--- NOTE | 2024-08-31 12:30 | DI.MRI_ITS ---
Exam(s) MR CERVICAL SPINE WO EXAM: MR CERVICAL SPINE WO CLINICAL HISTORY: neck pain with radiation into BUE,cervical radiculopathy,m54.12 TECHNIQUE: Multiplanar multisequence MRI of the cervical spine was performed without intravenous con trast. COMPARISON: CR XR CERVICAL SPINE COMP 4-5V from 08/29/2024 FINDINGS: BONES: Vertebral body heights are maintained. Alignment is normal. Bone marrow signal intensity is wi thin normal limits. CERVICAL CORD: Craniovertebral junction is unremarkable. The cervical cord is normal size and signal intensity. SOFT TISSUES: Unremarkable. C2-3: No disc herniation or bulge is identified. No evidence of neural foraminal narrowing. No signi ficant central canal stenosis. C3-4: Minimal disc bulging. No evidence of neural foraminal narrowing. No significant central canal stenosis. C4-5: Minimal disc bulging. No evidence of neural foraminal narrowing. No significant central canal stenosis. C5-6: Mild loss of disc height. Endplate osteophytes and uncovertebral joint spurring. Severe bilate ral neural foraminal narrowing. Slight narrowing of the AP dimension of the central canal. C6-7: No evidence of neural foraminal narrowing. Slight narrowing of the AP dimension of the central canal. Severe right and moderate left C7-T1: No disc herniation or bulge is identified. No evidence of neural foraminal narrowing. No signi ficant central canal stenosis. IMPRESSION: No evidence of disc herniation at any level. Uncovertebral joint osteophytes cause bilateral neural foraminal narrowing at C5-6 and C6-7. DATA REPOSITORY:
== END 2024-08-31 13:18 ==
LOC: DI 12:59
PROVIDERS: PCP Family Medicine; Visit Provider Nurse Practitioner Family
DX: M54.12 Radiculopathy, cervical region (principal)
CPT/HCPCS: 72141